=== PATIENT | male | born 1960 | race Caucasian/White ===

== ENCOUNTER → 2016-11-02 | Outpatient (CLI) | payer BC ==
[~2016-11-02] MED LIST: AMLO-114 PO; ASPI81TA28 PO; ATOR-24 PO; ATV/1 PO; CHOL100010 PO; CITA20TA9 PO; CYAN100020 PO; CYAN10005 PO; GLCSR500 PO; MAGN500T4 PO; MILK1CAP PO; MILK200C PO; MULT-506 PO; QUIN40TA18 PO; SIMV40TA2 PO; SITA1TAB27 PO; TIMO0.05 OPB
[2016-11-02 13:26] LABS: BASO % 0.7 %; BASO ABS # 0.04 K/uL (0-0.2); COMPLETE YES; EOS % 2.8 %; HEMATOCRIT 40.6 % (42-52); LYMPH % 36.8 %; LYMPH ABS # 2.22 K/uL (1.2-3.4); MEAN CELL VOLUME 89.2 fL (80-100); MEAN CORPUSCULAR HEMOGLOBIN 33.2 pg (25-34); MEAN CORPUSCULAR HGB CONC 37.2 g/dl (32-36); MEAN PLATELET VOLUME 10.6 fL (7.4-10.4); MONO % 7.8 %; NEUT % 50.9 %; PLATELET COUNT 182 K/uL (130-400); RED BLOOD COUNT 4.55 M/uL (4.7-6.1); WHITE BLOOD COUNT 6.03 K/uL (4.8-10.8)
[2016-11-02 13:46] LABS: ALT/SGPT 151 U/L (12-78); AST/SGOT 117 U/L (15-37); BLOOD UREA NITROGEN 10 mg/dl (7-18); BUN/CREATININE RATIO 12.9 (10-20); CALCIUM 9.1 mg/dl (8.5-10.1); CARBON DIOXIDE 21 mmol/L (21-32); CHLORIDE 103 mmol/L (98-107); CREATININE 0.79 mg/dl (0.60-1.40); GLUCOSE 146 mg/dl (70-99); POTASSIUM 3.3 mmol/L (3.5-5.1); SODIUM 138 mmol/L (136-145); TRIGLYCERIDES 120 mg/dl (0-150); VERY LOW DENSITY LIPOPROT CALC 24 mg/dl
[2016-11-02 13:48] LABS: ESTIMATED AVERAGE GLUCOSE 146 mg/dl; HA1C FLAG Normal (Normal)
[2016-11-02 13:52] LABS: ALB/GLOB RATIO 1.2 (0.9-2); ALKALINE PHOSPHATASE 118 U/L (45-117); CHOLESTEROL 148 mg/dl (0-200); CHOLESTEROL/HDL RATIO 2.7; HDL CHOLESTEROL 55 mg/dl; LDL CHOLESTEROL CALCULATED 69 mg/dl
[2016-11-02 14:10] LABS: RATIO 29.7 mcg/mg (0-30.0)
== END | disposition home or self-care (01) ==
LOC: C.LABBC 11:06
PROVIDERS: ATTEND Family Medicine
DX: E11.9 Type 2 diabetes mellitus without complications (principal); I10 Essential (primary) hypertension; Z11.59 Encounter for screening for other viral diseases

== ENCOUNTER → 2016-12-30 | Day surgery (SDC) | payer BC ==
[2016-12-29 09:21] VITALS: Ht 174 cm; Wt 93.2 kg
[~2016-12-30] VITALS: Ht 174 cm; Wt 93.2 kg
[~2016-12-30] MED LIST changes: -ATV/1 PO; -CYAN10005 PO; +LIDOCAINE HCL 2% 2 ML VIAL (20MG/ML) ONE; -MILK200C PO; +PROPOFOL IV EMULSION 10 MG/ML 20 ML VIAL IV ONE; -SIMV40TA2 PO; +SODIUM CHLORIDE 0.9% 500ML 500 ML IV ONE
--- NOTE | 2016-12-30 08:52 | Endo History and Physical ---
History & Physical Date of Service: Dec 30, 2016. Chief Complaint: screening,history of polyps Referring Physician: Dr.Richard Ladan Linton History of Present Illness 56 yo CM who presents for colonoscopy secondary to history of colon polyps. Past Medical History Diabetes, Anxiety, High Cholesterol, Hypertension, Liver Disease Past Surgical History Hx Cardiac Surgery: No Hx Internal Defibrillator: No Hx Pacemaker: No Hx Abdominal Surgery: Yes (INGUINAL HERNIA) Hx of Implantable Prosthesis: No Hx Post-Op Nausea and Vomiting: No Hx Cancer Surgery: No Hx Thoracic Surgery: No Hx Orthopedic: Yes (LEFT GREAT TO AMPUTATION, LEFT 2ND TOE PARTIAL AMPUTATION) Hx Urinary Tract Surgery: No Family History Polyp Social History Smoking Status: Former Smoker Hx Substance Use: No Hx Alcohol Use: Yes (4 DRINKS DAILY) Allergies Coded Allergies: Vancomycin (Verified Allergy, Severe, HIVES, 12/29/16) SEVERE HIVES/ REDENESS OF UPPER BODY TRUE ALLERGY, NOT JUST ROCKY SYNDROME Current Medications Reported Home Medications Medications Dose Route/Sig Max Daily Dose Days Date Category Timoptic 0.25% Oph (Timolol Maleate (Ophth)) 0.25 % Nika 1 Drop OPB QAM 12/29/16 Reported Milk Thistle (Milk Thistle (Silybum Marianum) 500 Mg Cap 1 Cap PO QAM 12/29/16 Reported Vitamin B12 (Cyanocobalamin) 1,000 Mcg Tab 1 Tab PO QAM 12/29/16 Reported Vitamin D (Cholecalciferol) 1,000 Unit Tab 1 Tab PO QAM 12/29/16 Reported Lipitor (Atorvastatin Calcium) 40 Mg Tab 40 Mg PO QAM 12/29/16 Reported Accupril (Quinapril HCl) 40 Mg Tab 40 Mg PO QAM 11/07/13 Reported Multivitamin (Multivitamins) Tab 1 Tab PO QAM 11/07/13 Reported Metformin HCl ER (Metformin HCl) 500 Mg Tabcr 1,000 Mg PO BID 11/07/13 Reported Magnesium (Magnesium Oxide (Mg Supplement) 500 Mg Tab 500 Mg PO QAM 11/07/13 Reported Januvia (Sitagliptin) 100 Mg Tab 100 Mg PO QAM 11/07/13 Reported Celexa (Citalopram Hydrobromide) 20 Mg Tab 20 Mg PO QAM 11/07/13 Reported Aspirin Ec (Aspirin) 81 Mg Tab 81 Mg PO QAM 11/07/13 Reported Norvasc (Amlodipine Besylate) 10 Mg Tab 10 Mg PO QAM 11/07/13 Reported Vital Signs Weight (Kilograms): 93.18 Height (Feet): 5 Height (Inches): 8.5 Date Time Temp Pulse Resp B/P Pulse Ox O2 Delivery O2 Flow Rate FiO2 12/30/16 08:27 36.4 80 16 134/82 95 Room Air Physical Exam General Appearance: WD/WN, no apparent distress Respiratory/Chest: Auscultation: breath sounds normal Cardiovascular: Heart Auscultation: RRR Abdomen: Bowel Sounds: normal Inspection & Palpation: soft, non-distended, no tenderness, guarding & rebound Assessment and Plan Assessment: 56 yo CM who presents for colonoscopy secondary to history of colon polyps. Plan: Proceed with colonoscopy.
--- NOTE | 2016-12-30 09:31 | Discharge Instructions ---
Endoscopy Patient Instructions Date / Procedure(s) Performed Dec 30, 2016. Colonoscopy Allergy Information Coded Allergies: Vancomycin (Verified Allergy, Severe, HIVES, 12/29/16) SEVERE HIVES/ REDENESS OF UPPER BODY TRUE ALLERGY, NOT JUST ROCKY SYNDROME Discharge Date / Findings Dec 30, 2016. Colon polyps Diverticulosis Internal hemorrhoids Medication Instructions Stopped Medication(s): last dose baby ASA yesterday OK to resume all medications today as prescribed Reported Home Medications Medications Dose Route/Sig Max Daily Dose Days Date Category Timoptic 0.25% Oph (Timolol Maleate (Ophth)) 0.25 % Nika 1 Drop OPB QAM 12/29/16 Reported Milk Thistle (Milk Thistle (Silybum Marianum) 500 Mg Cap 1 Cap PO QAM 12/29/16 Reported Vitamin B12 (Cyanocobalamin) 1,000 Mcg Tab 1 Tab PO QAM 12/29/16 Reported Vitamin D (Cholecalciferol) 1,000 Unit Tab 1 Tab PO QAM 12/29/16 Reported Lipitor (Atorvastatin Calcium) 40 Mg Tab 40 Mg PO QAM 12/29/16 Reported Accupril (Quinapril HCl) 40 Mg Tab 40 Mg PO QAM 11/07/13 Reported Multivitamin (Multivitamins) Tab 1 Tab PO QAM 11/07/13 Reported Metformin HCl ER (Metformin HCl) 500 Mg Tabcr 1,000 Mg PO BID 11/07/13 Reported Magnesium (Magnesium Oxide (Mg Supplement) 500 Mg Tab 500 Mg PO QAM 11/07/13 Reported Januvia (Sitagliptin) 100 Mg Tab 100 Mg PO QAM 11/07/13 Reported Celexa (Citalopram Hydrobromide) 20 Mg Tab 20 Mg PO QAM 11/07/13 Reported Aspirin Ec (Aspirin) 81 Mg Tab 81 Mg PO QAM 11/07/13 Reported Norvasc (Amlodipine Besylate) 10 Mg Tab 10 Mg PO QAM 11/07/13 Reported Provider Instructions Activity Restrictions - No exercising or heavy lifting for 24 hours. - Do not drink alcohol the day of the procedure. - Do not drive a car or operate machinery until the day after the procedure. - Do not make any important decisions or sign important papers in 24 hours after the procedure. Following Day: - Return to full activity which may include returning to work/school. Diet Start your diet with liquids and light foods (jello, soup, juice, toast). Then eat your usual diet if not nauseated. Treatment For Common After Affects For mild abdominal pain, bloating, or excessive gas: - Rest - Eat lightly - Lie on right side Follow-Up Information Follow-up with Dr.Richard Ladan Linton as scheduled Anesthesia Information What You Should Know You have had a procedure that required some medicine to reduce anxiety and discomfort. This treatment is called moderate sedation. After receiving the treatment, you may be sleepy, but you will be able to breathe on your own. The effects of the treatment may last for several hours. Follow these instructions along with Activity/Diet recommendations noted above: * Do NOT do anything where dizziness or clumsiness would be dangerous. * Rest quietly at home today, then you can be up and about tomorrow. * Have a responsible person stay with you the rest of today. * You may have had an I.V. today. If so, you may take the dressing off later today. Recommendations Call your doctor if: * Trouble breathing * Continuous vomiting for more than 24 hours * Temperature above 101 degrees * Severe abdominal pain or bloating * Pain not relieved by pain medicine ordered * There is increased drainage or redness from any incision * A large amount of rectal bleeding greater than 2-3 tablespoons. (If you had a polyp/s removed or have hemorrhoids, a small amount of blood - from the rectum is to be expected.) * You have any unanswered questions or concerns. IN THE EVENT OF A SERIOUS EMERGENCY, GO TO THE NEAREST EMERGENCY ROOM Your discharge instructions were prepared by provider Richardson Sales. Patient Instructions Signature Page Akash Wolfe Patient (or Guardian) Signature/Date: I have read and understand the instructions given to me by my caregivers. Caregiver/RN/Doctor Signature/Date: The above-named patient and/or guardian has received patient instructions on this date. + Original Patient Signature Page (only) stays with chart. Please make copy for patient.
--- NOTE | 2016-12-30 09:38 | GI REPORT ---
Procedure Date: 12/30/2016 8:36 AM Procedure: Colonoscopy Indications: High risk colon cancer surveillance: Personal history of colonic polyps Medicines: Monitored Anesthesia Care Complications: No immediate complications. Estimated Blood Loss: Estimated blood loss: none. Procedure: Pre-Anesthesia Assessment: - Prior to the procedure, a History and Physical was performed, and patient medications and allergies were reviewed. The patient's tolerance of previous anesthesia was also reviewed. The risks and benefits of the procedure and the sedation options and risks were discussed with the patient. All questions were answered, and informed consent was obtained. Prior Anticoagulants: The patient has taken aspirin, last dose was 4 days prior to procedure. ASA Grade Assessment: II - A patient with mild systemic disease. After reviewing the risks and benefits, the patient was deemed in satisfactory condition to undergo the procedure. After I obtained informed consent, the scope was passed under direct vision. Throughout the procedure, the patient's blood pressure, pulse, and oxygen saturations were monitored continuously. The scope was introduced through the anus and advanced to the terminal ileum. The colonoscopy was performed without difficulty. The patient tolerated the procedure well. The quality of the bowel preparation was good. The terminal ileum, ileocecal valve, appendiceal orifice, and rectum were photographed. Findings: Three sessile polyps were found in the sigmoid colon. The polyps were 5 to 7 mm in size. These polyps were removed with a hot snare. Resection and retrieval were complete. Multiple small-mouthed diverticula were found in the sigmoid colon. Non-bleeding internal hemorrhoids were found during retroflexion. The hemorrhoids were small. Impression: - Three 5 to 7 mm polyps in the sigmoid colon, removed with a hot snare. Resected and retrieved. - Diverticulosis in the sigmoid colon. - Non-bleeding internal hemorrhoids. Recommendation: - Resume previous diet. - Continue present medications. - Repeat colonoscopy for surveillance based on pathology results. - Return to primary care physician as previously scheduled. Richardson Sales, DO 12/30/2016 9:37:20 AM This report has been signed electronically. Note Initiated On: 12/30/2016 8:36 AM I attest to the content of the Intraoperative Record and orders documented therein, exceptions below
[2016-12-30 09:47] VITALS: BP 119/75; PULSE 78; O2SAT 96
--- NOTE | 2016-12-30 09:47 | Anesthesiology Progress Note ---
Anesthesia Post Op Note Date & Time Dec 30, 2016 at 09:46 Vital Signs Pain Intensity: 0 Vital Signs Past 12 Hours Date Time Temp Pulse Resp B/P Pulse Ox O2 Delivery O2 Flow Rate FiO2 12/30/16 09:32 79 16 127/79 97 Room Air 12/30/16 09:17 83 16 114/71 96 Room Air 12/30/16 08:27 36.4 80 16 134/82 95 Room Air Notes Mental Status: alert / awake / arousable, participated in evaluation Pt Amnestic to Procedure: Yes Nausea / Vomiting: adequately controlled Pain: adequately controlled Airway Patency, RR, SpO2: stable & adequate BP & HR: stable & adequate Hydration State: stable & adequate Anesthetic Complications: no major complications apparent
== END | disposition home or self-care (01) ==
LOC: C.GI 08:10
PROVIDERS: ATTEND Internal Medicine
DX: Z12.11 Encounter for screening for malignant neoplasm of colon (principal); D12.5 Benign neoplasm of sigmoid colon; K57.30 Diverticulosis of large intestine without perforation or abscess without bleeding; K64.8 Other hemorrhoids; E11.9 Type 2 diabetes mellitus without complications; E78.5 Hyperlipidemia, unspecified; I10 Essential (primary) hypertension; Z87.891 Personal history of nicotine dependence; Z86.010 Personal history of colon polyps

== ENCOUNTER → 2017-02-02 | Outpatient (CLI) | payer BC ==
[~2017-02-02] MED LIST changes: -LIDOCAINE HCL 2% 2 ML VIAL (20MG/ML) ONE; -PROPOFOL IV EMULSION 10 MG/ML 20 ML VIAL IV ONE; -SODIUM CHLORIDE 0.9% 500ML 500 ML IV ONE
[2017-02-02 17:47] LABS: THYROID STIMULATING HORMONE 1.86 uIu/ml (0.300-4.500)
[2017-02-03 06:21] LABS: ESTIMATED AVERAGE GLUCOSE 134 mg/dl; HA1C FLAG Normal (Normal)
[2017-02-07 23:32] LABS: ANTI-CENTROMERE AB <1.0 NEG AI (<1.0 NEG); ANTI-SS-A <1.0 NEG AI (<1.0 NEG); ANTI-SS-B <1.0 NEG AI (<1.0 NEG); DNA ds CRITHIDIA NEGATIVE (NEGATIVE); MICROSOMAL AB <1 IU/ML (<9); Sm Antibody <1.0 NEG AI (<1.0 NEG)
== END | disposition home or self-care (01) ==
LOC: C.LABBFT 15:24
PROVIDERS: ATTEND Family Medicine
DX: R74.0 Nonspecific elevation of levels of transaminase and lactic acid dehydrogenase [LDH] (principal); E87.5 Hyperkalemia; E11.9 Type 2 diabetes mellitus without complications

== ENCOUNTER → 2017-12-15 | Outpatient (CLI) | payer BC ==
[~2017-12-15] MED LIST changes: -TIMO0.05 OPB; +TIMO0.2518 OPB
[2017-12-15 16:44] LABS: ALBUMIN 4.1 gm/dl (3.4-5.0); ALT/SGPT 79 U/L (12-78); AST/SGOT 60 U/L (15-37); BLOOD UREA NITROGEN 8 mg/dl (7-18); CALCIUM 9.1 mg/dl (8.5-10.1); CARBON DIOXIDE 24 mmol/L (21-32); CREATININE 0.81 mg/dl (0.60-1.40); GLUCOSE 117 mg/dl (70-99); POTASSIUM 3.5 mmol/L (3.5-5.1); SODIUM 138 mmol/L (136-145)
[2017-12-15 16:54] LABS: ALKALINE PHOSPHATASE 116 U/L (45-117); CHOLESTEROL 154 mg/dl (0-200); LDL CHOLESTEROL CALCULATED 70 mg/dl; TOTAL PROTEIN 7.9 gm/dl (6.4-8.2)
[2017-12-16 07:36] LABS: HEMOGLOBIN A1C 6.6 % (4.5-5.6)
== END | disposition home or self-care (01) ==
LOC: C.LABBFT 12:12
PROVIDERS: ATTEND Nurse Practitioner Family
DX: Z00.00 Encounter for general adult medical examination without abnormal findings (principal); Z12.5 Encounter for screening for malignant neoplasm of prostate; E11.42 Type 2 diabetes mellitus with diabetic polyneuropathy; E78.5 Hyperlipidemia, unspecified